=== PATIENT | male | born 1935 | race Caucasian/White ===

== ENCOUNTER 2020-05-10 17:40 | Outpatient (CLI) | payer MEDICARE, SELFPAY ==
[2020-05-10 18:10] VITALS: BP 166/112; PULSE 76; RESP 15; TEMP 36.6; O2SAT 98
[2020-05-10 18:15] VITALS: BMI 25.8
[2020-05-10 18:35] VITALS: BP 177/116; PULSE 75; RESP 16; O2SAT 97
[2020-05-10 19:43] LABS: Chloride 101 mmol/L (98-107); Sodium 138 mmol/L (136-145)
[2020-05-10 19:44] LABS: Potassium 4.4 mmoL/L (3.5-5.1)
[2020-05-10 19:47] LABS: Anion Gap 7.4 mEq/L (5-15); Blood Urea Nitrogen 18 mg/dl (9-20); Calcium 9.2 mg/dl (8.4-10.2); Carbon Dioxide 34 mmol/L (22.0-30.0); Creatinine Clearance Estimated 63 mL/min (50-200); Estimated Glomerular Filt Rate 108 ml/min (>60); GFR (African American) 130 ML/MIN (>60); Glucose 93 mg/dl (74-100)
== END 2020-05-10 18:40 | disposition home or self-care (01) ==
PROVIDERS: PCP Family Medicine; Visit Provider Family Medicine
DX: E86.0 Dehydration (principal)
CPT/HCPCS: 80048; 96365